=== PATIENT | female | born 1955 | race Caucasian/White ===

== ENCOUNTER → 2020-12-02 08:54 | Outpatient (CLI) | payer BC, SELFPAY ==
[2020-12-02 10:11] LABS: COVID19 -Nasal RAPID Negative (Negative)
--- NOTE | 2020-12-02 18:56 | DI.NM.S_ITS ---
DATE OF SERVICE: 12/02/2020 PROCEDURE PERFORMED: Exercise perfusion study. INDICATIONS: Dyspnea on exertion. RADIOPHARMACEUTICAL: 26.6 millicurie technetium-99m Myoview IV was injected at stress and 12.8 millicurie technetium-99m Myoview IV was injected at rest. CARDIAC STRESS: The patient underwent exercise perfusion study under the supervision of an attending staff. The patient walked on Joaquim protocol for 6 minutes, achieved 101 percent of target heart rate, normal blood pressure response. Baseline blood pressure 120/88 mmHg. Peak blood pressure 170/90 mmHg. The patient achieved functional aerobic impairment of positive 6 percent and 7.2 METs of workload. No chest pain or anginal symptoms. Baseline rhythm was sinus. During stress, no convincing ischemic changes seen. The patient had a short five- beat run of SVT in the early part of recovery. RAW DATA: There was breast shadow seen. GATED STUDY: Stress LV ejection fraction 81 percent without any obvious wall motion abnormalities. Resting end-diastolic volume 83 mL. TID ratio 1.06, which is within normal limits. Lung/heart ratio 0.29, which is within normal limits. MYOCARDIAL PERFUSION SCAN: Stress supine and resting supine images revealed minimally decreased perfusion of mid anterior wall, which got completely resolved during prone images, suggestive of breast tissue attenuation artifact. No convincing ischemia or infarction pattern is seen. CONCLUSION: This is a normal myocardial perfusion study with slight breast tissue attenuation artifact, which got resolved during prone images. Diminished exercise tolerance. Preserved left ventricular function. Normal hemodynamic response. No anginal symptoms. Short run of supraventricular tachycardia in early recovery. Overall, this is a low-risk myocardial perfusion scan. Kerri Ahuja - Yvette/soha doc#: [id number]/job#: [id number] dd: 12/02/2020 17:50:00 dt: 12/02/2020 18:47:00 DICTATING MD/COPIES TO: Gianna Michel MD COPIES MNE: JANA;
== END ==
PROVIDERS: Referring Provider Nurse Practitioner Family; Visit Provider Nurse Practitioner Family
DX: R06.00 Dyspnea, unspecified (principal); Z20.822 Contact with and (suspected) exposure to COVID-19
CPT/HCPCS: 78452; 87635; 93017; A9502